=== PATIENT | female | born 1980 | race Caucasian/White ===

== ENCOUNTER 2017-11-04 12:58 | Inpatient (IN) | payer OTHER ==
[~2017-11-04] VITALS: Ht 160 cm; Wt 63.5 kg
[~2017-11-04 12:58] MED LIST: DOCUSATE SODIU100 MG PO; IBUPROFEN800 MG PO; MASON NATURAL325 MG PO; PRENATAL1 TA2 PO
--- NOTE | 2017-11-04 15:04 | History & Physical ---
General Information and HPI MD Statement: I have seen and personally examined LEONARDA HERNANDEZ and documented this H&P. The patient is a 37 year old female at [40] weeks and [3] days gestation who presented with a chief complaint of [IOL]. Source of Information: patient Exam Limitations: no limitations History of Present Illness: 37yo, at 40 3/7wks, here for IOL due to postdate. pt has no complaints, denies ctxs pain, no VB or LOF, reports GFM. care started at 7 6/7wks, uncomplicated thus far, AMA. Rh negative, she received RhoGAM 08/13/2017. 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 Para: 1 Last Menstrual Period: 01/25/2017 Estimated Delivery Date: 11/01/2017 Past guest relations manager History: non-contributory Past Pregnancies Past Pregnancies: Date of Delivery: 10/08/2013 Gestational Age: 39 wks Weight: 5lb7oz Type of Delivery: vaginal Anesthesia: epidural Medical History Blood Transfusion Hx: No Neurological: NONE EENT: NONE Cardiovascular: NONE Respiratory: NONE Gastrointestinal: NONE Hepatic: NONE Renal: NONE Musculoskeletal: NONE Psychiatric: NONE Endocrine: NONE Blood Disorders: NONE Cancer(s): NONE GAS PUMPER/Reproductive: NONE Surgical History Pertinent Surgical History: myringotomies 1986,1987 Past Family/Social History Psychosocial History Where do you live? Home Smoking Status: Never Smoked ETOH Use: denies use Illicit Drug Use: denies illicit drug use Review of Systems Review of Systems Constitutional: Reports: no symptoms. EENTM: Reports: no symptoms. Cardiovascular: Reports: no symptoms. Respiratory: Reports: no symptoms. GI: Reports: no symptoms. Genitourinary: Reports: see HPI. Musculoskeletal: Reports: no symptoms. Skin: Reports: no symptoms. Neurological/Psychological: Reports: no symptoms. Hematologic/Endocrine: Reports: no symptoms. Immunologic/Allergic: Reports: no symptoms. All Other Systems: Reviewed and Negative Exam & Diagnostic Data Last 24 Hrs of Vital Signs/I&O Intake & Output 11/04 1600 11/04 0800 11/04 0000 Intake Total Output Total Balance Patient 63.503 kg Weight Obstetric Exam Wgt Gained During : 28lbs Pelvimetry: tested 5lb7oz Dilation (cm): 0 Effacement (%): 50 Station: -3 Membranes: intact Fluid: unknown Fundal Height (cm): 38 Multiple Gestation? No Contractions: occasional #1 - FHR Baseline: 130 Category: 1 Estimated Weight: 3000g Presentation: vertex Patient for Induction? Yes Walton Score Walton Score Response Value Cervix Position: posterior 0 Cervix Consistency: medium 1 Cervix Effacement: 30-50% 1 Cervix Dilation: closed 0 Cervix Station: -3 0 Total 2 Physical Exam: VSS General: NAD abdomen: gravid, soft, nontender, ext: DCT (-) Labs Blood Type & Rh: A negative Antibody Screen: negative Hct/Hgb & Platelets #1: 12.3/39.5%,PLT [id number] Hct/Hgb & Platelets #2: 10.9/35.1%,[id number] Rubella: immune VDRL #1: negative VDRL #2: negative HbsAg: negative HIV #1: negative HIV #2 negative 1 Hr P Group B Strep: negative Initial Ultrasound: IUP at 7 6/7 wks Anatomy Ultrasound: nl Genetic Testing: nl Last 24 Hrs of Labs/Ten: Laboratory Tests 11/04/17 1405: CBC w Diff Pending, WBC Pending, RBC Pending, Hgb Pending, Hct Pending, MCV Pending, MCH Pending, MCHC Pending, RDW Pending, Plt Count Pending, MPV Pending Assessment/Plan Assessment/Plan: 37yo, 40 3/7wks,IOL for postdate 1. admit pt, admission labs 2. R/B/A IOL d/w pt, she understand. d/w pt about cervical ripening with misoprostol in detail, R/B/A of misoprostol d/w pt, she understand and agreed with plan, informed consent obtained. 1st dose misoprostol placed 3. will m onitor closely As Ranked By This Provider Problem List: 1. 2. Post-dates Core Measures Venous Thromboembolism VTE Risk Factors / No Mechanical VTE Prophylaxis d/t LowRisk-No Interven Req'd No VTE Pharm Prophylaxis d/t LowRisk-No Interven Req'd Attending MD Review Statement Attending Statement Attending MD Statement: examined this patient, discussed with family, discussed w/nursing
[2017-11-04 15:20] LABS: ABSOLUTE BASOPHIL COUNT 0 /CUMM (0.0-0.2); ABSOLUTE EOSINOPHIL COUNT 0.1 /CUMM (0.0-0.7); ABSOLUTE GRANULOCYTE CT 7.3 /CUMM (1.4-6.5); ABSOLUTE MONOCYTE COUNT 0.6 /CUMM (0.10-0.60); BASOPHIL % 0.2 % (0.0-2.0); EOSINOPHIL % 0.7 % (0-5); GRANULOCYTE % 81.4 % (42.2-75.2); HEMATOCRIT 34.6 % (37-47); MEAN CORPUSCULAR HGB 32.8 PG (27.0-31.0); MEAN CORPUSCULAR HGB CONC 33.9 G/DL (33.0-37.0); MEAN CORPUSCULAR VOLUME 96.8 FL (81.0-99.0); MEAN PLATELET VOLUME 9.3 FL (7.4-10.4); PLATELET COUNT 197 /CUMM (130-400); RBC DISTRIBUTION WIDTH 14.2 % (11.5-14.5); RED BLOOD CELL CT 3.57 /CUMM (4.20-5.40)
--- NOTE | 2017-11-04 20:22 | PN- OBGYN ---
Surgical Brief Attending Note Brief Attending Note: pt c/o felt ctxs, does not need pain management now. on TOCO: ctxs q 1-4 min, FHR cat I VE defered will hold off 2nd dose of misoprostol, monitor closely
--- NOTE | 2017-11-05 11:07 | PN- OBGYN ---
See Addendum Surgical Brief Attending Note Brief Attending Note: Ms. Ly was admitted yesterday for IOL for AMA/postdates and received one Misoprostil for cervical ripening. Her cervix was closed/posterior and remains so this morning. Patient is having mild tightenings, no painful UCs. I advised we continue with Misoprostil today until her cervix is riper, then follow with Pitocin if needed. Patient in agreement with plan. FHR 135 BL, category 1, no decels.
[2017-11-06 00:26] LABS: ABSOLUTE BASOPHIL COUNT 0 /CUMM (0.0-0.2); ABSOLUTE EOSINOPHIL COUNT 0 /CUMM (0.0-0.7); ABSOLUTE LYMPH COUNT 0.8 /CUMM (1.2-3.4); ABSOLUTE MONOCYTE COUNT 0.8 /CUMM (0.10-0.60); BASOPHIL % 0.1 % (0.0-2.0); EOSINOPHIL % 0.1 % (0-5); HEMATOCRIT 30.6 % (37-47); MEAN CORPUSCULAR HGB 32.9 PG (27.0-31.0); MEAN CORPUSCULAR HGB CONC 34.2 G/DL (33.0-37.0); MEAN CORPUSCULAR VOLUME 96.2 FL (81.0-99.0); MEAN PLATELET VOLUME 8.8 FL (7.4-10.4); PLATELET COUNT 229 /CUMM (130-400); RED BLOOD CELL CT 3.18 /CUMM (4.20-5.40)
[2017-11-06 00:50] LABS: WHITE BLOOD CELL COUNT 14.5 /CUMM (4.8-10.8)
[2017-11-06 00:51] LABS: GRANULOCYTE % 89.3 % (42.2-75.2)
--- NOTE | 2017-11-06 01:29 | Labor & Delivery Summary ---
Delivery Summary Vaginal Delivery: Vaginal: vertex Episiotomy/Lacerations: Episiotomy/Lacerations: midline Repair: in layers with 2.0 chromic Anesthesia: epidural working Placenta: Placenta: spontanteous, normal, 3 vessel Anesthesia: block Baby's Weight: 6-12 Apgars - 1 Min: 9 Apgars - 5 Min: 9 Additional Comments: EBL 1200cc, hemorrhage due to bilateral vaginal varicosity lacerations. Multipara was delivered of a viable female , [id number],9 from the SARAI position over a midline episiotomy without extension. AF was clear, cord trivascular, placenta delivered spontaneously and intact. Engorged labial and vaginal sidewall varicosities were shorn during the last few pushes and with the passage of the baby and caused a significant acute loss of dark venous blood. There was also significant loss of blood from an arterial pumping vessel withing the perineal incision. Patient had an episode of significant hypotension during the repair, she became very pale, diaphoretic and nauseated. She improved with fluid resuscitation, ephedrine, O2, and Zofran. Throughout the uterus was firm and uterine bleeding was minimal. Vaginal/perineal hemostasis was obtained with clamps and figure-8 sutures of 2.0 chromic, and the ML episoiotomy was closed as usual in layers. The vaginal solis were intact but had significant bruising, the vulvar structures, cervix, rectal sphincter and mucosa were intact. Repeat examinations showed no palpable vaginal hematoma. The vaginal vault and COURTNEY were cleaned of some small clots. Sharps and sponge counts were correct. EBL 1200cc.
[2017-11-06 04:54] LABS: ABSOLUTE BASOPHIL COUNT 0 /CUMM (0.0-0.2); ABSOLUTE EOSINOPHIL COUNT 0 /CUMM (0.0-0.7); ABSOLUTE GRANULOCYTE CT 21.4 /CUMM (1.4-6.5); ABSOLUTE LYMPH COUNT 1.6 /CUMM (1.2-3.4); ABSOLUTE MONOCYTE COUNT 1.5 /CUMM (0.10-0.60); BASOPHIL % 0 % (0.0-2.0); EOSINOPHIL % 0 % (0-5); GRANULOCYTE % 87.4 % (42.2-75.2); HEMATOCRIT 29.1 % (37-47); MEAN CORPUSCULAR HGB 32.8 PG (27.0-31.0); MEAN CORPUSCULAR HGB CONC 33.6 G/DL (33.0-37.0); MEAN CORPUSCULAR VOLUME 97.7 FL (81.0-99.0); MEAN PLATELET VOLUME 8.9 FL (7.4-10.4); PLATELET COUNT 267 /CUMM (130-400); RBC DISTRIBUTION WIDTH 14.3 % (11.5-14.5); RED BLOOD CELL CT 2.98 /CUMM (4.20-5.40)
[2017-11-06 05:10] LABS: WHITE BLOOD CELL COUNT 24.5 /CUMM (4.8-10.8)
--- NOTE | 2017-11-06 10:22 | PN- Post Delivery/GYN ---
Subjective Subjective: feeling well minimal bleeding no SOB ECHOLS. Review of Systems Constitutional: Denies: chills, fever, malaise, weakness. EENTM: Denies: blurred vision, double vision, visual changes. Cardiovascular: Denies: palpitations, syncope. Respiratory: Denies: short of breath. Gastrointestinal: Denies: diarrhea, nausea, vomiting. Neurological/Psychological: Denies: anxiety, depressed. Objective Last 24 Hrs of Vital Signs/I&O vss Physical Exam General Appearance Alert, Oriented X3, Cooperative, No Acute Distress Cardiovascular Regular Rate Lungs Clear to Auscultation Abdomen Soft, fundus firm Pelvic (FEMALE) lochia serosanganous Assessment/Plan Assessment/Plan pod #1 pp hemorrhage secondary to bleeding varicosities. Hct stable repeat hct pending Problem List: 1. Post-dates 2. hemorrhage Attending MD Review Statement Attending Statement Attending MD Statement: examined this patient, discussed with family, discussed with nursing
[2017-11-06 11:21] LABS: ABSOLUTE BASOPHIL COUNT 0 /CUMM (0.0-0.2); ABSOLUTE EOSINOPHIL COUNT 0 /CUMM (0.0-0.7); ABSOLUTE GRANULOCYTE CT 13.4 /CUMM (1.4-6.5); ABSOLUTE LYMPH COUNT 0.9 /CUMM (1.2-3.4); ABSOLUTE MONOCYTE COUNT 0.7 /CUMM (0.10-0.60); BASOPHIL % 0.2 % (0.0-2.0); EOSINOPHIL % 0 % (0-5); GRANULOCYTE % 89.4 % (42.2-75.2); MEAN CORPUSCULAR HGB 33.1 PG (27.0-31.0); MEAN CORPUSCULAR HGB CONC 34.3 G/DL (33.0-37.0); MEAN CORPUSCULAR VOLUME 96.6 FL (81.0-99.0); MEAN PLATELET VOLUME 9.1 FL (7.4-10.4); PLATELET COUNT 198 /CUMM (130-400); RBC DISTRIBUTION WIDTH 14.7 % (11.5-14.5); RED BLOOD CELL CT 2.49 /CUMM (4.20-5.40)
[2017-11-07 00:56] VITALS: BP 104/60
[2017-11-07] MEDS ORDERED: IBUPROFEN800 M1 PO (07:36)
[2017-11-07] MEDS ORDERED: VITAFOL-OB CAP1 EACH PO (07:43)
--- NOTE | 2017-11-07 08:10 | PN- OBGYN ---
Surgical Brief Attending Note Brief Attending Note: PPD 2 Sitting up in chair, no complaints. Ready to go home. Feels more 'drained' than usual. Denies dizziness, SOB, CP. +void, toerating POs, no BM yet. without difficulty afebrile, BP 100/60, HR 90 Abd - soft, NT Fundus - firm, NT, below U Extr - benign A: stable acute blood loss anemia, minimally symptomatic P: home today, routine anemia precautions PNV +iron daily If patient feels that her energy is not returning quickly, or if she's experiencing any excessive bleeding or pain, I asked her to see me in the office PRN, otherwise come for a routine six-week check
--- NOTE | 2017-11-07 08:11 | PN- OBGYN ---
Surgical Brief Attending Note Brief Attending Note: 11:00am Miso placed in posterior vaginal fornix. Cervix closed/soft/posterior, intact. FHR BL 135, Category 1, no decelerations UCs light, not painful 3:30pm FHR category 1 UCs mild q5, pt. has cramping cervix 1cm, posterior, 50% effaced, -2 station AROM - clear fluid, Miso #2 placed 6:00pm 1-2cm/90%/-1 FHR Cat. 1 UCs q3-4, strong epidural placed for pain relief 8:00pm 4cm/100%/-1, AF clear FHR Cat 1, UCS q3-4 patient comfortable 11:00pm prolonged FHR deceleration to 70, 3 min. recovery patient placed in left lateral, O2 on, scalp stim., maternal hypotension, Ephedrine given fully dilated, VTX +1 station, ROP position UCs q3-4, patient began pushing after full recovery of FHR no descent until patient pushed in right lateral position, - during the short stage 2 labia swelled and with descent of the head came shearing of already enlarged internal labial varicosities, dark venous blood could be seen coming from both distal lateral vaginal sidewalls. After delivery there was no further dark venous blood externally, but there was bruising and possible hematomas on both vaginal sidewalls. Please see Delivery Summary.
== END 2017-11-07 13:00 | DRG 774 ==
LOC: GNO 12:58
PROVIDERS: Obstetrics & Gynecology
PROC: 3E0P7VZ Introduction of Hormone into Female Reproductive, Via Natural or Artificial Opening (ICD-10-PCS; 2017-11-04)
PROC: 0HQ9XZZ Repair Perineum Skin, External Approach (ICD-10-PCS; principal; 2017-11-05)
PROC: 10E0XZZ Delivery of Products of Conception, External Approach (ICD-10-PCS; principal; 2017-11-05)
PROC: 3E033VJ Introduction of Other Hormone into Peripheral Vein, Percutaneous Approach (ICD-10-PCS; 2017-11-05)
DX: O48.0 Post-term pregnancy (principal); O72.1 Other immediate postpartum hemorrhage; O71.4 Obstetric high vaginal laceration alone; D62 Acute posthemorrhagic anemia; Z3A.40 40 weeks gestation of pregnancy; O76 Abnormality in fetal heart rate and rhythm complicating labor and delivery; Z37.0 Single live birth; O90.81 Anemia of the puerperium
CPT/HCPCS: GNOP; GNOS; 36415; 81001; 86920; 86922; 87086; 87389; J2405; J2790; J7120